=== PATIENT | male | born 1945 | race African-American/Black ===

== ENCOUNTER 2017-06-05 12:54 | Day surgery (SDC) | payer OTHER ==
[2017-06-01 14:27] VITALS: BMI 23.3
[~2017-06-05 12:54] MED LIST: LEVOFLOXACIN 500 MG PREMIX BAG IVPB ONE
[2017-06-05] MEDS ORDERED: oxyCODONE HCL 5 MG TABLET PO PRN (16:27)
[2017-06-05] MEDS ORDERED: ONDANSETRON 4 MG/2 ML VIAL IVPUSH PRN (16:27)
[2017-06-05] MEDS ORDERED: LACTATED RINGERS SOLUTION 1,000 ML IV SCH (16:30)
[2017-06-05] MEDS ORDERED: LEVOFLOXACIN 500 MG IVPB 500 MG/100 ML BAG IVPB ONE ×2 (17:35→17:48)
[2017-06-05] MEDS ORDERED: LIDOCAINE HCL/PF 2% SDV 5ML VIAL ONE (17:35)
[2017-06-05] MEDS ORDERED: PROPOFOL 20 ML ONE ×2 (17:36→17:42)
[2017-06-05] MEDS ORDERED: LIDOCAINE HCL 1%, 10 MG/ML (20ML VIAL) ONE (17:39)
[2017-06-05] MEDS ORDERED: LEVOFLOXACIN 500 MG PREMIX BAG IVPB ONE (17:47)
[2017-06-05] MEDS ORDERED: DESFLURANE GAS 240 ML BOTTLE IH ONE (18:20)
--- NOTE | 2017-06-05 18:54 | OP ---
Operative Note - Note: Operative Date: 06/05/17 Pre-Operative Diagnosis: urethral stricture with bilateral ureteral strictures Operation: cystoscopy/laser urethrotomy/bilateral retrograde pyelogram/ bilateral ureteroscopy/bilateral stent exchange Post-Operative Diagnosis: Same as Pre-op Surgeon: Earl Salas Anesthesia: General Drains & Tubes with Location: bilateral ureteral stents
[2017-06-05 19:19] VITALS: TEMP 97.9
[2017-06-05 21:03] VITALS: BP 118/68; PULSE 74
--- NOTE | 2017-06-06 09:01 | OP ---
DATE OF OPERATION: 06/05/2017 PREOPERATIVE DIAGNOSES: Urethral stricture and bilateral ureteral strictures. ATTENDING: Earl Woo MD ANESTHESIA: General. PROCEDURE: Cystoscopy, laser urethrotomy, bilateral retrograde pyelogram, bilateral ureteroscopy, and bilateral stent exchange. DESCRIPTION OF PROCEDURE: The patient was brought in the operating room, placed in a supine position on the operating room table. General anesthesia was administered. The patient was also given preoperative antibiotics. The patient was then placed in the dorsal lithotomy position and prepped and draped in the usual sterile manner. Cystoscopy was performed, and a urethral stricture at the bulbous urethra with involvement of the bladder neck was noted. A laser urethrotomy was made at the 12 o'clock position which allowed relaxation of the fossa and allowed entry into the bladder. There was no bleeding and no muscular tissue involving the sphincter was incised. The patient has severe scarring of the bladder neck involving both ureteral orifices. The ureteral orifices are also lateralized. The patient has a history of recurrent ureteral stricture with chronic kidney disease. Because of the difficulty in accessing and identifying the ureters, ureteroscopy was utilized in order to pass a wire alongside the stents. This was done bilaterally. The left stent was initially removed, and a safety wire was attempted to be passed through the stent, however, was unsuccessful. The stent was removed. Because of the presence of the first wire, there was still access to the kidney. With the stent removed, ureteroscopy was performed, and a distal stricture with high-grade hydroureteronephrosis was noted. No evidence of neoplasm. The ureteroscopy also served to dilate the distal ureteral orifice. With this accomplished, a 6-Kinyarwanda 24-cm stent was placed on the left side utilizing the Seldinger technique. The right-sided ureteral stent exchange was performed in the same manner. There was a high-grade right ureteral stricture which was dilated with the ureteroscope. A stent was then placed utilizing the Seldinger technique. The right ureteral stent was also occluded. A wire had been placed via the ureteroscope prior to the removal of the right stent. A retrograde showed a high-grade distal ureteral stricture with a high-grade hydronephrosis. Both stents were in good position. No complications were noted. The patient tolerated the procedure very well. The disposition of the patient was to the recovery room. Trinidad [id number]
--- NOTE | 2017-06-06 18:46 | PATH ---
Surgical Pathology Report Patient Name: CHERYLE ARBOLEDA Med. Rec. 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 Electronically Signed Cristi Sandoval M.D. Gross Description Received fresh labeled "removed bilateral stent," are 2 white, coiled portions of tubing averaging 35 cm in length, consistent with ureteral stents. No soft tissue is present. No sections are submitted, gross only. 06/06/2017 saudi06/06/2017
== END 2017-06-05 21:04 | disposition home or self-care (01) ==
LOC: JASU-SURG 12:54
PROVIDERS: ATTEND Urology
PROC: 0TP97DZ Removal of Intraluminal Device from Ureter, Via Natural or Artificial Opening (ICD-10-PCS; 2017-06-05)
PROC: 0T787DZ Dilation of Bilateral Ureters with Intraluminal Device, Via Natural or Artificial Opening (ICD-10-PCS; 2017-06-05)
PROC: 0T9880Z Drainage of Bilateral Ureters with Drainage Device, Via Natural or Artificial Opening Endoscopic (ICD-10-PCS; 2017-06-05)
PROC: 0TJ98ZZ Inspection of Ureter, Via Natural or Artificial Opening Endoscopic (ICD-10-PCS; 2017-06-05)
PROC: 0TND8ZZ Release Urethra, Via Natural or Artificial Opening Endoscopic (ICD-10-PCS; principal; 2017-06-05 14:30)
DX: N35.9 Urethral stricture, unspecified (principal); N13.1 Hydronephrosis with ureteral stricture, not elsewhere classified
CPT/HCPCS: 76000-TC; 88300-TC; 94760

== ENCOUNTER 2018-01-15 06:06 | Day surgery (SDC) | payer OTHER ==
[2018-01-12 15:48] VITALS: BMI 23.6
[~2018-01-15 06:06] MED LIST changes: +IOHEXOL 300 MG/ML INFUS..BTL IV ONE; -LEVOFLOXACIN 500 MG PREMIX BAG IVPB ONE
[2018-01-15] MEDS ORDERED: MIDAZOLAM HCL 2 MG/2 ML SINGLE DOSE VIAL ONE (08:11)
[2018-01-15] MEDS ORDERED: SUCCINYLCHOLINE CHLORIDE 200 MG/10 ML VIAL ONE ×2 (08:15)
[2018-01-15] MEDS ORDERED: PROPOFOL 20 ML ONE (08:15)
[2018-01-15] MEDS ORDERED: DEXAMETHASONE SOD PHOSPHATE 4 MG/1 ML VIAL ONE (09:01)
[2018-01-15] MEDS ORDERED: LIDOCAINE HCL/PF 2% SDV 5ML VIAL ONE (09:01)
[2018-01-15] MEDS ORDERED: ONDANSETRON 4 MG/2 ML VIAL IVPUSH PRN (09:12)
[2018-01-15] MEDS ORDERED: LACTATED RINGERS SOLUTION 1,000 ML IV SCH (09:15)
--- NOTE | 2018-01-15 09:28 | OP ---
Operative Note - Note: Operative Date: 01/15/18 Pre-Operative Diagnosis: bilateral ureteral stricture/bilateral hydronephrosis/ renal insufficiency Operation: cystoscopy/bilateral ureteroscopy/bilateral stent exchange Findings: bilateral distal ureteral strictures Post-Operative Diagnosis: Same as Pre-op Surgeon: Earl Salas Anesthesia: General Specimens Removed: bilateral ureteral stents Drains & Tubes with Location: bilateral 11/19 stents
[2018-01-15 11:59] VITALS: BP 108/69; PULSE 57; TEMP 97.4
--- NOTE | 2018-01-15 13:18 | OP ---
DATE OF OPERATION: 01/15/2018 PREOPERATIVE DIAGNOSIS: Bilateral urethral stricture, bilateral hydronephrosis, chronic kidney disease with bladder neck contracture. POSTOPERATIVE DIAGNOSIS: Bilateral urethral stricture, bilateral hydronephrosis, chronic kidney disease with bladder neck contracture. PROCEDURE: Cystoscopy, bilateral ureteroscopy, bilateral stent exchange. SURGEON: Conrad Saenz MD ANESTHESIA: General. DESCRIPTION OF PROCEDURE: The patient was brought in the operating room and placed in the supine position on the operating room table. Preoperative antibiotics and anesthesia were administered. The patient was then placed in the dorsal lithotomy position. The patient has a longstanding history of a bladder neck contracture with severe stricture disease involving the disease ureteral aspect of the ureters. The patient has been maintained with bilateral stents. Cystoscopy is performed, and a bladder neck contract is noted once again. The cystoscope was taken into the bladder and dilated using the scope. No evidence of neoplasm or stones were noted within the kidney. Stents are laterally placed. Attempts at passing a wire alongside the stent were unsuccessful. The fear of removing a stent without a wire being present could lead to loss of access to that side. The patient is at high risk for requiring a percutaneous nephrostomy tube if the stent is lost. At this point, a ureteroscope was utilized. The right and left ureteral orifices are intubated and a wire passed proximally. Two wires were left in place. The stents were then safely removed. Utilizing the Seldinger technique under cystoscopic visualization, both sides are stented utilizing a 6-[place] 24-cm stent. No complications were noted. The patient tolerated the procedure very well. The patient will require a dilatation at the next stent exchange. CONRAD SAENZ M.D. [id number]
--- NOTE | 2018-01-16 10:07 | PATH ---
Surgical Pathology Report Patient Name: CHERYLE ARBOLEDA Med. Rec. #: [id number] /Age/Gender: 1945 (Age: 72) / M Account: [id number] Location: [facility] Taken: 01/15/2018 Received: 01/15/2018 Reported: 01/16/2018 Physicians: Earl Salas Specimen(s) Received BILATERAL STENT Clinical History Bilateral ureteral stricture Final Diagnosis URETERAL STENT, BILATERAL, REMOVAL: URETERAL STENTS. MACROSCOPIC DIAGNOSIS. Electronically Signed Gayle Hill M.D. Gross Description Received fresh labeled "bilateral stent ureteral," are 2 yellow-green, coiled portions of tubing, consistent with ureteral stents. The stents average 35 cm in length. No soft tissue is present. No sections are submitted, gross only. /01/15/2018 saudi/01/15/2018
== END 2018-01-15 12:00 | disposition home or self-care (01) ==
LOC: JASU-SURG 06:06
PROVIDERS: ATTEND Urology
PROC: 0TP98DZ Removal of Intraluminal Device from Ureter, Via Natural or Artificial Opening Endoscopic (ICD-10-PCS; 2018-01-15)
PROC: 0T788DZ Dilation of Bilateral Ureters with Intraluminal Device, Via Natural or Artificial Opening Endoscopic (ICD-10-PCS; principal; 2018-01-15 08:00)
DX: N35.8 Other urethral stricture (principal); N13.1 Hydronephrosis with ureteral stricture, not elsewhere classified; N18.9 Chronic kidney disease, unspecified; N32.0 Bladder-neck obstruction
CPT/HCPCS: 76000-TC-FY; 88300-TC; 94760

== ENCOUNTER 2018-08-06 08:39 | Day surgery (SDC) | payer OTHER ==
[2018-08-03 11:47] VITALS: BMI 22.6
[2018-08-06] MEDS ORDERED: MIDAZOLAM HCL 2 MG/2 ML SINGLE DOSE VIAL ONE (10:14)
[2018-08-06] MEDS ORDERED: IOHEXOL 300 MG/ML INFUS..BTL IV ONE ×2 (10:33)
[2018-08-06] MEDS ORDERED: ONDANSETRON 4 MG/2 ML VIAL IVPUSH PRN (11:49)
[2018-08-06] MEDS ORDERED: LACTATED RINGERS SOLUTION 1,000 ML IV SCH (12:00)
[2018-08-06] MEDS ORDERED: ACETAMINOPHEN INJECTION 100 ML IVPB ONE (12:33)
[2018-08-06] MEDS ORDERED: ACETAMINOPHEN 1000 MG/100 ML VIAL (NON FORMULARY) IVPB ONE ×2 (12:35→12:48)
--- NOTE | 2018-08-06 13:09 | OP ---
Operative Note - Note: Operative Date: 08/06/18 Pre-Operative Diagnosis: bilateral ureteral stricture/bilateral hydronephrosis/ chronic kidney disease/bladder neck contraction Operation: cystoscopy/bilateral retrograde pyelogram/bilateral ureteroscopy/ bilateral balloon dilation of ureters/bilateral stent exchange Findings: bilateral high grade distal ureteral strictures with bilateral hydronephrosis Post-Operative Diagnosis: Same as Pre-op Surgeon: Earl Salas Anesthesia: General Specimens Removed: bilateral ureteral stents Drains & Tubes with Location: bilateral 11/19 ureteral stents
[2018-08-06 15:37] VITALS: TEMP 97.8
[2018-08-06 17:37] VITALS: BP 131/70; PULSE 78
--- NOTE | 2018-08-07 09:32 | OP ---
DATE OF OPERATION: 08/06/2018 PREOPERATIVE DIAGNOSIS: Bilateral ureteral strictures, bilateral hydronephrosis, chronic kidney disease, bladder neck contracture. PROCEDURE: Cystoscopy, bilateral retrograde pyelogram, bilateral ureteroscopy, bilateral balloon dilation of ureters, and bilateral stent exchange. ATTENDING: Earl Woo MD ANESTHESIA: General. OPERATION FOLLOWS: The patient was brought in the operating room, placed in supine position on the operating room table. General anesthesia and preoperative antibiotics were administered. At this point, the patient was placed in the dorsal lithotomy position, prepped and draped in the usual sterile manner. Cystoscopy was performed. Bladder neck contracture was present. It was dilated with the scope. The ureteral orifices were identified by the ureteral stents present. They are at the bladder neck and not in a normal anatomic position. The left side was initially started, and there was difficulty in passing a wire proximally. It was necessary for this patient to maintain the stents and to pass a wire in order to avoid losing the positon of the ureteral orifice. Ureteroscopy was then utilized for both orifices in order to place wires bilaterally. With wires placed bilaterally, the right ureteral stent was removed initially. A second wire was placed through the stent. With [address], a retrograde pyelogram showed a high grade hydronephrosis with distal ureteral stricture. Balloon dilation was performed in the right side. Once the balloon dilation was performed, ureteroscopy was again utilized in order to rule out any neoplastic process. At this point, the same procedure was performed on the left side. Once this was accomplished, ureteral stents were placed over the wire utilizing the Seldinger technique. I must add that both ureteral stents that were initially in position were removed prior to the balloon dilation. The patient tolerated the procedure very well. No complications were noted. The disposition of the patient was to the recovery room. Trinidad [id number]
--- NOTE | 2018-08-07 14:33 | PATH ---
Surgical Pathology Report Patient Name: CHERYLE ARBOLEDA Med. Rec. #: [id number] /Age/Gender: 1945 (Age: 72) / M Account: [id number] Location: [facility] Taken: 08/06/2018 Received: 08/06/2018 Reported: 08/07/2018 Physicians: Earl Salas Specimen(s) Received OLD URETERAL STENTS, BILATERAL Clinical History Hydronephrosis Final Diagnosis OLD URETERAL STENTS, BILATERAL, STENT EXCHANGE: URETERAL STENTS (2). MACROSCOPIC DIAGNOSIS. Electronically Signed Gayle Hill M.D. Gross Description Received fresh labeled "bilateral old ureteral stents," are 2 yellow-green, coiled portions of tubing, consistent with ureteral stents. No soft tissue is present. No sections are submitted, gross only. /08/06/2018 saudi08/06/2018
== END 2018-08-06 17:38 | disposition home or self-care (01) ==
LOC: JASU-SURG 08:39
PROVIDERS: ATTEND Urology
PROC: 0TP98DZ Removal of Intraluminal Device from Ureter, Via Natural or Artificial Opening Endoscopic (ICD-10-PCS; 2018-08-06)
PROC: 0T788ZZ Dilation of Bilateral Ureters, Via Natural or Artificial Opening Endoscopic (ICD-10-PCS; principal; 2018-08-06 10:00)
PROC: 0T788DZ Dilation of Bilateral Ureters with Intraluminal Device, Via Natural or Artificial Opening Endoscopic (ICD-10-PCS; 2018-08-06 10:00)
DX: N13.1 Hydronephrosis with ureteral stricture, not elsewhere classified (principal); N32.0 Bladder-neck obstruction; I12.9 Hypertensive chronic kidney disease with stage 1 through stage 4 chronic kidney disease, or unspecified chronic kidney disease; N18.9 Chronic kidney disease, unspecified
CPT/HCPCS: 76000-TC-FY; 88300-TC; 94760; J0131

== ENCOUNTER 2018-12-10 06:34 | Day surgery (SDC) | payer OTHER ==
[2018-12-06 13:32] VITALS: BMI 20.7
[2018-12-10] MEDS ORDERED: PROMETHAZINE HCL 25 MG/1 ML VIAL IVPUSH PRN (07:59)
[2018-12-10] MEDS ORDERED: ONDANSETRON 4 MG/2 ML VIAL IVPUSH PRN (07:59)
[2018-12-10] MEDS ORDERED: LACTATED RINGERS SOLUTION 1,000 ML IV SCH (08:00)
[2018-12-10 09:01] LABS: EOS % 3.8 % (0-4.5); HEMATOCRIT 37.7 % (35.4-49); HEMOGLOBIN 12.3 GM/dL (11.7-16.9); LYMPH % 25.7 % (8-40); MCH 27.4 pg (25.7-33.7); MCHC 32.5 g/dl (32.0-35.9); MONO % 6.1 % (3.8-10.2); NEUT % 63.4 % (42.8-82.8); PLATELET COUNT 353 K/MM3 (134-434); RBC 4.49 M/mm3 (4.00-5.60); RDW 15.2 % (11.9-15.9); WHITE BLOOD COUNT 8.6 K/mm3 (4.0-10.0)
[2018-12-10 09:26] LABS: INR 1.07 (0.83-1.09); PROTHROMBIN TIME (PATIENT) 12.6 SEC (9.7-13.0)
[2018-12-10 09:31] LABS: ALBUMIN 2.6 g/dl (3.4-5.0); BILIRUBIN,TOTAL 0.2 mg/dL (0.2-1); BLOOD UREA NITROGEN 34.6 mg/dL (7-18); CALCIUM 8.8 mg/dL (8.5-10.1); CREATININE 2.3 mg/dL (0.55-1.3); POTASSIUM 4.8 mmol/L (3.5-5.1); TOT PROT 7.9 g/dl (6.4-8.2)
[2018-12-10] MEDS ORDERED: IOHEXOL 300 MG/ML INFUS..BTL IV ONE (10:15)
[2018-12-10] MEDS ORDERED: LIDOCAINE HCL/PF 2% SDV 5ML VIAL ONE (10:21)
[2018-12-10] MEDS ORDERED: PROPOFOL 20 ML ONE (10:21)
[2018-12-10] MEDS ORDERED: DEXAMETHASONE SOD PHOSPHATE 4 MG/1 ML VIAL ONE (10:22)
--- NOTE | 2018-12-10 11:33 | OP ---
Operative Note - Note: Operative Date: 12/10/18 Pre-Operative Diagnosis: bilateral ureteral stricture Operation: cystoscopy/laser ablation of bladder neck Findings: high grade bladder neck contracture Surgeon: Earl Salas Anesthesia: General Drains & Tubes with Location: 20 [place]har[place] silastic [place]
[2018-12-10 12:34] VITALS: PULSE 68; TEMP 97.2
[2018-12-10 14:20] VITALS: BP 117/79
--- NOTE | 2018-12-10 22:07 | OP ---
DATE OF OPERATION: 12/10/2018 PREOPERATIVE DIAGNOSIS: Bilateral ureteral stricture. POSTOPERATIVE DIAGNOSIS: High-grade bladder neck contracture. ATTENDING: Conrad Saenz MD ANESTHESIA: General. DESCRIPTION OF OPERATION: Patient has a history of bilateral ureteral strictures and has had previous urethral stricture disease and bladder neck contractures. The patient has been maintained by self-catheterizing himself to maintain the patency of the urethra and bladder neck. The patient did not report any abnormal difficulty in passing the catheter. The patient was brought in the operating room, placed in supine position on the operating room table. He was placed in dorsal lithotomy position and prepped and draped in the usual sterile manner. At this point, cystoscopy was performed. There was an indurated area involving the urethra and bladder neck. A wire was passed under fluoroscopic visualization into the bladder. At this point, dilators were passed over the wire to dilate the urethra and bladder neck to 24-[place]an. With this accomplished, cystoscopy was reattempted. However, the cystoscope could not safely be pushed into the bladder. There was a fear of a sudden jolt causing a perforation or a rectal injury. Therefore, it was decided to utilize a holmium laser and perform a laser neck ablation. A holmium laser fiber was then placed into the cystoscope, and under direct visualization, laser ablation of the bladder neck was performed in a 360-degree fashion. Care was taken not to deviate from the bladder neck as the patient's sphincter mechanism would not be affected. With this accomplished, the bladder was emptied. Both ureteral stents were noted. The exit for the bladder stents were at the level of the bladder neck. Visualization of the ureteral orifices was blocked by the mild hematuria noted. It was decided to avoid changing the stents at this time as they are difficult stents to replace. The patient was left with a Silastic 20-Bel[place]an catheter. The patient will be followed up in 1 week to change his stents, and the patient will maintain the catheter for a period of 7 days. The patient was given preoperative antibiotics. No complications were noted. The patient tolerated the procedure very well. CONRAD SAENZ M.D. [id number]
== END 2018-12-10 14:00 | disposition home or self-care (01) ==
LOC: JASU-SURG 06:34
PROVIDERS: ATTEND Urology
PROC: 0T5C8ZZ Destruction of Bladder Neck, Via Natural or Artificial Opening Endoscopic (ICD-10-PCS; principal; 2018-12-10 08:00)
PROC: 0T5C8ZZ Destruction of Bladder Neck, Via Natural or Artificial Opening Endoscopic (ICD-10-PCS; 2018-12-10 08:00)
DX: N32.0 Bladder-neck obstruction (principal); I10 Essential (primary) hypertension
CPT/HCPCS: 36415; 76000-TC-FY; 80053; 85025; 85610; 94760

== ENCOUNTER 2020-08-03 04:44 | Day surgery (SDC) | payer OTHER ==
[2020-07-31 09:14] VITALS: BMI 22.8
[2020-08-03] MEDS ORDERED: ACETAMINOPHEN 325 MG TABLET (FP) PO ONE (14:00)
[2020-08-03] MEDS ORDERED: ACETAMINOPHEN 325 MG TABLET (FP) ONE ×2 (14:17→14:18)
[2020-08-03 14:33] VITALS: BP 110/69; PULSE 73; TEMP 97.6
== END 2020-08-03 14:25 | disposition home or self-care (01) ==
LOC: JRADIR 04:44
PROVIDERS: ATTEND Urology
PROC: 0T9100Z Drainage of Left Kidney with Drainage Device, Open Approach (ICD-10-PCS; principal; 2020-08-03)
DX: N13.8 Other obstructive and reflux uropathy (principal)
CPT/HCPCS: 50432; 88108; 93005; 93010

== ENCOUNTER 2020-08-10 05:38 | Day surgery (SDC) | payer OTHER ==
[2020-08-10 09:47] VITALS: BMI 22.8
[2020-08-10] MEDS ORDERED: MIDAZOLAM HCL 5 MG/1 ML Single Dose Vial IVPUSH ONE ×2 (11:20→11:26)
[2020-08-10 13:55] VITALS: BP 128/77; PULSE 58; TEMP 97.8
== END 2020-08-10 13:50 | disposition home or self-care (01) ==
LOC: JRADIR 05:38
PROVIDERS: ATTEND Radiology Diagnostic Radiology
PROC: 0T9730Z Drainage of Left Ureter with Drainage Device, Percutaneous Approach (ICD-10-PCS; principal; 2020-08-10)
DX: N13.8 Other obstructive and reflux uropathy (principal)
CPT/HCPCS: 50693

== ENCOUNTER 2022-09-13 07:18 | Emergency (ER) | payer OTHER ==
[2022-09-13 07:35] VITALS: RESP 18; TEMP 98; BMI 21.4
[2022-09-13 08:39] VITALS: BP 132/72; PULSE 108
== END 2022-09-13 08:58 | disposition home or self-care (01) ==
LOC: JERFT 07:18
DX: I10 Essential (primary) hypertension (principal)
CPT/HCPCS: 99282-25